=== PATIENT | female | born 1960 | race Caucasian/White ===

== ENCOUNTER 2016-04-27 11:17 | Emergency (ER) | payer BC ==
[~2016-04-27] VITALS: Ht 167.6 cm; Wt 85.7 kg
[~2016-04-27 11:17] MED LIST: TURM1CAP4 PO; [UNRECOGNIZED DRUG - CODE] PO
[2016-04-27 11:19] VITALS: TEMP 36.9; Ht 167.6 cm; Wt 85.7 kg
[2016-04-27 12:14] LABS: BASO % 0.3 %; BASO ABS # 0.01 K/uL (0-0.2); COMPLETE YES; EOS % 0.3 %; HEMATOCRIT 43.8 % (37-47); IG% 0.3 %; LYMPH % 46.6 %; LYMPH ABS # 1.56 K/uL (1.2-3.4); MEAN CELL VOLUME 86.2 fL (80-100); MEAN CORPUSCULAR HEMOGLOBIN 30.1 pg (25-34); MEAN CORPUSCULAR HGB CONC 34.9 g/dl (32-36); MEAN PLATELET VOLUME 9.4 fL (7.4-10.4); MONO % 18.2 %; NEUT % 34.3 %; PLATELET COUNT 229 K/uL (130-400); RED BLOOD COUNT 5.08 M/uL (4.2-5.4); WHITE BLOOD COUNT 3.35 K/uL (4.8-10.8)
--- NOTE | 2016-04-27 12:24 | DIAGNOSTIC IMAGING REPORT ---
CHEST 2 VIEWS ROUTINE CLINICAL HISTORY: productive cough dyspnea COMPARISON STUDY: 11/21/2014 FINDINGS: The bones soft tissues and hemidiaphragms are normal. The cardiomediastinal silhouette is normal. The lungs are clear. The pulmonary vasculature is normal. IMPRESSION: Negative chest. Electronically signed by: Eros Mcneil M.D. 04/27/2016 12:22 PM Dictated Date/Time: 04/27/2016 12:22 PM
[2016-04-27 12:32] LABS: ALT/SGPT 46 U/L (12-78); AST/SGOT 32 U/L (15-37); BLOOD UREA NITROGEN 18 mg/dl (7-18); BUN/CREATININE RATIO 12.8 (10-20); CALCIUM 8.9 mg/dl (8.5-10.1); CARBON DIOXIDE 26 mmol/L (21-32); CHLORIDE 101 mmol/L (98-107); GLUCOSE 74 mg/dl (70-99); POTASSIUM 3.7 mmol/L (3.5-5.1); SODIUM 136 mmol/L (136-145)
[2016-04-27 12:34] LABS: ALKALINE PHOSPHATASE 54 U/L (45-117)
[2016-04-27] MEDS ORDERED: SODIUM CHLORIDE 0.9% 1000ML 1,000 ML IV STA (12:36)
[2016-04-27] MEDS ORDERED: ONDANSETRON INJ 2 MG/ML 2 ML VIAL IV STA (12:36)
[2016-04-27] MEDS ORDERED: ACETAMINOPHEN IV 100 ML IV STA (12:36)
--- NOTE | 2016-04-27 12:44 | EMERGENCY ROOM VISIT NOTE ---
History Report prepared by Breanne: Rickie Cortes Under the Supervision of: Dr. Greg Magallon M.D. First contact with patient: 12:30 Chief Complaint: ILLNESS Stated Complaint: SICK,DEHYDRATED History of Present Illness The patient is a 56 year old female who presents to the Emergency Room with complaints of fatigue. Patient with 1 week of URI, fevers, chills, fatigue, lack of appetite, mild nausea mid abdominal discomfort, right ear ache, weakness , and fatigue. Notes mild headache without severe nor radiation to neck. Nothing makes better. Worse with standing up and this morning when standing up she got lightheaded and had near syncope. No chest pain, no full syncope, no neuro deficits. No medications taken for this. Seen by PCP today who sent here for further evaluation. No sick contacts. Did not get flu vaccine this year. No history of cardiac nor lung issues. Source of History: patient Onset: 1 week ago Position: other (global - illness) Timing: other (persistent) Associated Symptoms: + SOB, + abdominal pain, + chills, + fatigue, + fevers , + headache, + nausea, + weakness, No LOC, No chest pain, No neck pain Note: Associated symptoms: Right ear ache. Lightheaded this morning with near- syncope. Denies neuro deficits. Review of Systems See HPI for pertinent positives & negatives. A total of 10 systems reviewed and were otherwise negative. Past Medical & Surgical Medical Problems: (1) High cholesterol Family History Diabetes mellitus Hypertension Social History Smoking Status: Former Smoker Alcohol Use: none Drug Use: none Current/Historical Medications No Active Prescriptions or Reported Meds Allergies Coded Allergies: No Known Allergies (Unverified , 04/27/16) Physical Exam Vital Signs Date Time Temp Pulse Resp B/P Pulse Ox O2 Delivery O2 Flow Rate FiO2 04/27/16 14:45 86 18 118/62 98 04/27/16 12:49 84 20 113/66 97 Room Air 04/27/16 12:46 67 119/71 71 105/60 83 113/66 04/27/16 12:03 73 04/27/16 11:19 36.9 76 18 117/51 98 Room Air Physical Exam GENERAL: Patient is tire appearing and in minimal distress. HEENT: No acute trauma, normocephalic atraumatic, dry membranes moist, no nasal congestion, no scleral icterus. NECK: No stridor, no adenopathy, no meningismus, trachea is midline. LUNGS: No dyspnea. Clear to auscultation and equal bilaterally. No wheeze, no rhonchi. HEART: Regular rate and rhythm. No murmurs, rubs, gallops appreciated. ABDOMEN: Moderate epigastric TTP. Otherwise soft, nontender, bowel sounds positive, no masses appreciated, no peritonitis. BACK: No midline tenderness, no CVA tenderness EXTREMITIES: Normal motion all extremities, no cyanosis, no edema. NEUROLOGIC: Alert and oriented, no acute motor or sensory deficits, no focal weakness, cranial nerves grossly intact. SKIN: No rash, no jaundice, no diaphoresis. Medical Decision & Procedures ER Provider Diagnostic Interpretation: Radiology results and stated below per my review and radiologist interpretation: CHEST 2 VIEWS ROUTINE CLINICAL HISTORY: productive cough dyspnea COMPARISON STUDY: 11/21/2014 FINDINGS: The bones soft tissues and hemidiaphragms are normal. The cardiomediastinal silhouette is normal. The lungs are clear. The pulmonary vasculature is normal. IMPRESSION: Negative chest. Electronically signed by: Eros Mcneil M.D. 04/27/2016 12:22 PM Dictated Date/Time: 04/27/2016 12:[address] SCAN OF THE ABDOMEN WITH IV CONTRAST CLINICAL HISTORY: Epigastric abdominal pain. Elevated serum lipase levels. COMPARISON STUDY: No priors. TECHNIQUE: Following the IV administration of 70 cc of Optiray 320, CT scan of the abdomen is performed from the lung bases to the pelvic inlet. Images are reviewed in the axial, sagittal, and coronal planes. IV contrast was administered without complication. Automated dose control exposure was utilized. Half dose contrast was utilized due to solitary kidney. CT DOSE: 513.13 mGy.cm FINDINGS: Lung bases: The heart is top normal in size and without pericardial effusion. Advanced emphysema is noted at the lung bases. There is dependent atelectasis. No airspace consolidation or pleural effusion is seen. A tiny hiatal hernia is noted. Liver: The contrast-enhanced liver is enlarged, measuring 19.0 cm in length. The liver demonstrates diffusely diminished attenuation consistent with hepatic steatosis. There is no intrahepatic biliary ductal dilatation. The hepatic veins and portal veins are patent. Gallbladder: Calcified gallstones are identified. There is no CT evidence of acute cholecystitis. Spleen: Normal in size and attenuation. Pancreas: The pancreas demonstrates mild glandular atrophy and is otherwise normal in appearance. No peripancreatic stranding or fluid is seen. The splenic vein is patent. Adrenal glands: Unremarkable. Kidneys: The right kidney is surgically absent. The left kidney is normal in size and without hydronephrosis. A subcentimeter cortical hypodensity in the left upper pole likely represents a cyst but is too small for definitive characterization. The left kidney enhances homogeneously. Abdominal vasculature: The abdominal aorta is normal in course and caliber noting moderate atherosclerotic calcification. Bowel: Visualized portions of the small bowel and colon are normal in course and caliber. A normal appendix is partially visualized. Peritoneum: There is no intraperitoneal free air or abdominal ascites. Lymphadenopathy: None. Skeletal structures: No lytic or blastic lesions are seen. IMPRESSION: 1. There are no acute infectious or inflammatory findings in the abdomen or pelvis. Specifically, there is no CT evidence of acute pancreatitis as clinically queried. 2. Hepatomegaly and severe hepatic steatosis. 3. Cholelithiasis. 4. Advanced emphysema. 5. Solitary left kidney. Electronically signed by: Bladimir Pitt M.D. 04/27/2016 2:28 PM Dictated Date/Time: 04/27/2016 2:23 PM Laboratory Results 04/27/16 11:31 Red Blood Count 5.08, Mean Corpuscular Volume 86.2, Mean Corpuscular Hemoglobin 30.1, Mean Corpuscular Hemoglobin Concent 34.9, Mean Platelet Volume 9.4, Neutrophils (%) (Auto) 34.3, Lymphocytes (%) (Auto) 46.6, Monocytes (%) (Auto) 18.2, Eosinophils (%) (Auto) 0.3, Basophils (%) (Auto) 0.3, Neutrophils # (Auto ) 1.15, Lymphocytes # (Auto) 1.56, Monocytes # (Auto) 0.61, Eosinophils # (Auto ) 0.01, Basophils # (Auto) 0.01 04/27/16 11:31 Test 04/27/16 11:31 04/27/16 11:55 White Blood Count 3.35 K/uL (4.8-10.8) Red Blood Count 5.08 M/uL (4.2-5.4) Hemoglobin 15.3 g/dL (12.0-16.0) Hematocrit 43.8 % (37-47) Mean Corpuscular Volume 86.2 fL (80-100) Mean Corpuscular Hemoglobin 30.1 pg (25-34) Mean Corpuscular Hemoglobin Concent 34.9 g/dl (32-36) Platelet Count 229 K/uL (130-400) Mean Platelet Volume 9.4 fL (7.4-10.4) Neutrophils (%) (Auto) 34.3 % Lymphocytes (%) (Auto) 46.6 % Monocytes (%) (Auto) 18.2 % Eosinophils (%) (Auto) 0.3 % Basophils (%) (Auto) 0.3 % Neutrophils # (Auto) 1.15 K/uL (1.4-6.5) Lymphocytes # (Auto) 1.56 K/uL (1.2-3.4) Monocytes # (Auto) 0.61 K/uL (0.11-0.59) Eosinophils # (Auto) 0.01 K/uL (0-0.5) Basophils # (Auto) 0.01 K/uL (0-0.2) RDW Standard Deviation 42.5 fL (36.4-46.3) RDW Coefficient of Variation 13.3 % (11.5-14.5) Immature Granulocyte % (Auto) 0.3 % Immature Granulocyte # (Auto) 0.01 K/uL (0.00-0.02) Anion Gap 9.0 mmol/L (3-11) Est Creatinine Clear Calc Drug Dose 48.3 ml/min Estimated GFR () 47.9 Estimated GFR (Non- 41.3 BUN/Creatinine Ratio 12.8 (10-20) Calcium Level 8.9 mg/dl (8.5-10.1) Magnesium Level 2.4 mg/dl (1.8-2.4) Total Bilirubin 0.6 mg/dl (0.2-1) Direct Bilirubin 0.1 mg/dl (0-0.2) Aspartate Amino Transf (AST/SGOT) 32 U/L (15-37) Alanine Aminotransferase (ALT/SGPT) 46 U/L (12-78) Alkaline Phosphatase 54 U/L (45-117) Troponin I < 0.015 ng/ml (0-0.045) Total Protein 7.9 gm/dl (6.4-8.2) Albumin 3.9 gm/dl (3.4-5.0) Globulin 4.0 gm/dl (2.5-4.0) Albumin/Globulin Ratio 1.0 (0.9-2) Lipase 548 U/L (73-393) Influenza Type A Antigen Neg for Influ A (NEG) Influenza Type B Antigen POS for Influ B (NEG) Laboratory results as reviewed by me. Medications Administered Medications (Trade) Dose Ordered Sig/Krystian Route Start Time Stop Time Status Last Admin Dose Admin Sodium Chloride 1,000 ml @ 999 mls/hr Q1H1M STAT IV 04/27/16 12:36 04/27/16 13:36 DC 04/27/16 12:56 999 MLS/HR Acetaminophen (Ofirmev Iv) 100 ml @ 400 mls/hr NOW STAT IV 04/27/16 12:36 04/27/16 12:50 DC 04/27/16 13:02 400 MLS/HR Ondansetron HCl (Zofran Inj) 4 mg NOW STAT IV 04/27/16 12:36 04/27/16 12:37 DC 04/27/16 13:02 4 MG ECG Indication: other (illness) Rate (beats per minute): 73 Rhythm: normal sinus Findings: no acute ischemic change, no ectopy ED Course 1230: The patient was evaluated in room A10. A complete history and physical exam was performed. 1236: Ordered Zofran Inj 4 mg IV, Acetaminophen 100 ml @ 400 mls/hr Protocol IV , NSS 1000 ml @ 999 mls/hr IV. 1314: I reevaluated the patient and she is feeling a little bit better. 1442: Reevaluated the patient and she feels completely better and wants to go home. Discussed results and discharge instructions: She verbalized understanding and agreement. The patient is ready for discharge. Medical Decision Differential: Viral, Pharyngitis, Cellulitis, Pneumonia, Influenza, Meningitis, Sepsis, Bacteremia, UTI/Pyelonephritis, Endocrine, Toxicologic, amongst other pathologies entertained. 56 yr old female with 5-7 days URI symptoms, poor appetite and weakness. Orthostatic and dehydrated in clinic and sent to ED. Epigastric discomfort, thus with mild Lipase elevation and exam felt CT reasonable which was fortunately negative. 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 Fluids and tylenol with vast improvement and patient wishing to go home. Stable and in no distress. Stressed increased PO fluid intake, rest and relax. Discussed symptoms requiring return. No evidence ACS, PE, dissection, nor bacteremia. Impression Primary Impression: Influenza A Additional Impressions: Dehydration Syncope due to orthostatic hypotension Scribe Attestation The scribe's documentation has been prepared under my direction and personally reviewed by me in its entirety. I confirm that the note above accurately reflects all work, treatment, procedures, and medical decision making performed by me. Departure Information Dispostion Home / Self-Care Prescriptions No Active Prescriptions or Reported Meds Referrals Jan Hoffman M.D. (PCP) Patient Instructions ED Flu, My [facility] Additional Instructions Please follow up with your primary provider in 1 week for repeat labs, in particular kidney function. Do not take any NSAIDs (ibuprofen, Mortin, aleve, naproxen, etc) and these may harm kidneys if you are dehydrated. Tylenol (acetaminophen) is OK to use. Problem Qualifiers
[2016-04-27 12:59] LABS: MAGNESIUM 2.4 mg/dl (1.8-2.4)
[2016-04-27] MEDS ORDERED: OPTIRAY 320 IV PRN (13:15)
--- NOTE | 2016-04-27 14:29 | DIAGNOSTIC IMAGING REPORT ---
CT SCAN OF THE ABDOMEN WITH IV CONTRAST CLINICAL HISTORY: Epigastric abdominal pain. Elevated serum lipase levels. COMPARISON STUDY: No priors. TECHNIQUE: Following the IV administration of 70 cc of Optiray 320, CT scan of the abdomen is performed from the lung bases to the pelvic inlet. Images are reviewed in the axial, sagittal, and coronal planes. IV contrast was administered without complication. Automated dose control exposure was utilized. Half dose contrast was utilized due to solitary kidney. CT DOSE: 513.13 mGy.cm FINDINGS: Lung bases: The heart is top normal in size and without pericardial effusion. Advanced emphysema is noted at the lung bases. There is dependent atelectasis. No airspace consolidation or pleural effusion is seen. A tiny hiatal hernia is noted. Liver: The contrast-enhanced liver is enlarged, measuring 19.0 cm in length. The liver demonstrates diffusely diminished attenuation consistent with hepatic steatosis. There is no intrahepatic biliary ductal dilatation. The hepatic veins and portal veins are patent. Gallbladder: Calcified gallstones are identified. There is no CT evidence of acute cholecystitis. Spleen: Normal in size and attenuation. Pancreas: The pancreas demonstrates mild glandular atrophy and is otherwise normal in appearance. No peripancreatic stranding or fluid is seen. The splenic vein is patent. Adrenal glands: Unremarkable. Kidneys: The right kidney is surgically absent. The left kidney is normal in size and without hydronephrosis. A subcentimeter cortical hypodensity in the left upper pole likely represents a cyst but is too small for definitive characterization. The left kidney enhances homogeneously. Abdominal vasculature: The abdominal aorta is normal in course and caliber noting moderate atherosclerotic calcification. Bowel: Visualized portions of the small bowel and colon are normal in course and caliber. A normal appendix is partially visualized. Peritoneum: There is no intraperitoneal free air or abdominal ascites. Lymphadenopathy: None. Skeletal structures: No lytic or blastic lesions are seen. IMPRESSION: 1. There are no acute infectious or inflammatory findings in the abdomen or pelvis. Specifically, there is no CT evidence of acute pancreatitis as clinically queried. 2. Hepatomegaly and severe hepatic steatosis. 3. Cholelithiasis. 4. Advanced emphysema. 5. Solitary left kidney. Electronically signed by: Bladimir Pitt M.D. 04/27/2016 2:28 PM Dictated Date/Time: 04/27/2016 2:23 PM
[2016-04-27 14:45] VITALS: BP 118/62; PULSE 86; O2SAT 98
== END 2016-04-27 14:49 | disposition home or self-care (01) ==
LOC: C.EDB 11:18 → C.EDA 14:49
DX: J11.1 Influenza due to unidentified influenza virus with other respiratory manifestations (principal); E86.0 Dehydration; I95.1 Orthostatic hypotension; R55 Syncope and collapse; E78.00 Pure hypercholesterolemia, unspecified; Z87.891 Personal history of nicotine dependence; Z83.3 Family history of diabetes mellitus; Z82.49 Family history of ischemic heart disease and other diseases of the circulatory system

== ENCOUNTER 2016-04-28 16:45 | Emergency (ER) | payer BC ==
[~2016-04-28] VITALS: Ht 167.6 cm; Wt 87.0 kg
[2016-04-28 16:53] VITALS: BP 121/77; PULSE 69; TEMP 36.6; O2SAT 95; Ht 167.6 cm; Wt 87.0 kg
== END 2016-04-28 18:45 | disposition left against medical advice (07) ==
LOC: C.EDB 16:46
DX: E86.0 Dehydration (principal)

== ENCOUNTER → 2016-05-01 | Outpatient (CLI) | payer BC ==
[2016-05-01 13:50] LABS: URINE APPEARANCE CLEAR (CLEAR); URINE BILIRUBIN NEG (NEG); URINE COLOR YELLOW; URINE EPITHELIAL CELL AUTO >30 /lpf (0-5); URINE NITRITE NEG (NEG); URINE SPECIFIC GRAVITY 1.019 (1.000-1.030); UROBILINOGEN NEG (NEG)
[2016-05-01 14:03] LABS: MANUAL MICROSCOPIC REQUIRED? NO; REVIEW REQ? NO
== END | disposition home or self-care (01) ==
LOC: C.LABBC 10:57
PROVIDERS: ATTEND Physician Assistant
DX: R30.0 Dysuria (principal)

== ENCOUNTER → 2016-07-31 | Outpatient (CLI) | payer BC ==
[~2016-07-31] MED LIST changes: -[UNRECOGNIZED DRUG - CODE] PO
[2016-07-31 13:20] LABS: BASO % 0.4 %; BASO ABS # 0.02 K/uL (0-0.2); COMPLETE YES; EOS % 3.6 %; IG% 0.2 %; LYMPH % 37.2 %; LYMPH ABS # 2.08 K/uL (1.2-3.4); MEAN CELL VOLUME 89.1 fL (80-100); MEAN CORPUSCULAR HEMOGLOBIN 30.2 pg (25-34); MEAN CORPUSCULAR HGB CONC 33.9 g/dl (32-36); MEAN PLATELET VOLUME 10.1 fL (7.4-10.4); MONO % 8.9 %; NEUT % 49.7 %; PLATELET COUNT 327 K/uL (130-400); RED BLOOD COUNT 4.94 M/uL (4.2-5.4); WHITE BLOOD COUNT 5.59 K/uL (4.8-10.8)
[2016-07-31 14:19] LABS: ALT/SGPT 43 U/L (12-78); AST/SGOT 25 U/L (15-37); BLOOD UREA NITROGEN 17 mg/dl (7-18); BUN/CREATININE RATIO 13.9 (10-20); CARBON DIOXIDE 22 mmol/L (21-32); CHLORIDE 110 mmol/L (98-107); GLUCOSE 91 mg/dl (70-99); POTASSIUM 4.2 mmol/L (3.5-5.1); SODIUM 141 mmol/L (136-145)
[2016-07-31 14:29] LABS: ALB/GLOB RATIO 1.1 (0.9-2); ALKALINE PHOSPHATASE 70 U/L (45-117)
== END | disposition home or self-care (01) ==
LOC: C.LABBC 10:31
PROVIDERS: ATTEND Internal Medicine
DX: Z11.59 Encounter for screening for other viral diseases (principal); E04.1 Nontoxic single thyroid nodule

== ENCOUNTER → 2016-10-09 | Outpatient (CLI) | payer BC ==
--- NOTE | 2016-10-09 15:32 | MAMMOGRAPHY REPORT ---
BILATERAL DIGITAL SCREENING MAMMOGRAM TOMOSYNTHESIS WITH CAD: 10/09/2016 CLINICAL HISTORY: Routine screening. Patient has no complaints. TECHNIQUE: Breast tomosynthesis in addition to standard 2D mammography was performed. Current study was also evaluated with a Computer Aided Detection (CAD) system. COMPARISON: No prior exams were available for comparison. BREAST COMPOSITION: There are scattered areas of fibroglandular density in both breasts. FINDINGS: No suspicious masses, calcifications, or areas of architectural distortion are noted in ei ther breast. There has been no significant interval change compared to prior exams. IMPRESSION: ACR BI-RADS CATEGORY 1: NEGATIVE There is no mammographic evidence of malignancy. A 1 year screening mammogram is recommended. The pa tient will receive written notification of the results. Approximately 10% of breast cancers are not detected with mammography. A negative mammographic report should not delay biopsy if a clinically suggestive mass is present. Sasha Hall M.D. ah/:10/09/2016 12:03:57 Paper Control Clerk: Willow CASEY(Judy)(Juan Jose), [facility] letter sent: Normal 1/2 BI-RADS Code: ACR BI-RADS Category 1: Negative
== END | disposition home or self-care (01) ==
LOC: C.MAMM 11:05
PROVIDERS: ATTEND Internal Medicine
DX: Z12.31 Encounter for screening mammogram for malignant neoplasm of breast (principal)

== ENCOUNTER → 2016-10-19 | Outpatient (CLI) | payer BC | END | disposition home or self-care (01) | LOC: C.PAPS 14:06 | PROVIDERS: ATTEND Obstetrics & Gynecology | DX: Z01.419 Encounter for gynecological examination (general) (routine) without abnormal findings (principal) ==